=== PATIENT | female | born 1980 | race Caucasian/White ===

== ENCOUNTER 2021-01-08 00:18 | Emergency (ER) | payer OTHER, SELFPAY ==
[2021-01-08 00:34] VITALS: BP 184/96; PULSE 86; RESP 18; TEMP 36.5; O2SAT 100
[2021-01-08 01:09] LABS: Add Urine Microscopic? YES; Appearance Urine Clear (Clear); Bacteria Urine Trace /hpf; Bilirubin Urine Negative (Negative); Blood Urine 1+ (Negative); Color Urine Yellow (Yellow); Glucose Urine UA Negative (Negative); Ketones Urine Negative (Negative); Leukocyte Esterase Ur Negative LEU/UL (Negative); Mucus Urine Rare /lpf; Nitrate Urine Negative (Negative); Protein Urine Negative (Negative); RBC Urine 0-2 /hpf (0-2); Specific Grav Ur 1.012 (1.001-1.035); Squamous Epithelial Cell Urine Rare /hpf (Few); Urobilinogen Urine Negative mg/dL (<2.0); WBC Urine 0-3 /hpf
[2021-01-08 01:26] VITALS: BP 139/100; PULSE 83; RESP 18; O2SAT 100
--- NOTE | 2021-01-08 01:36 | ED.GENADULT ---
HPI - General Adult General Chief complaint: Urogenital-Female Stated complaint: kidney infection? Time Seen by Provider: 01/08/21 01:27 Source: patient History of Present Illness HPI narrative: Patient is a 40 y/o female complaining of right low back pain starting 1 week ago. She describes her pain as aching and rates it as 5/10. She states that turning and twisting make her pain worse. She took Tylenol which provides temporary relief. She has no fever, chills, vomiting or dysuria. She took OTC test for urine, which showed she has leukocytes. She is concerned about UTI. Related Data Allergies Allergy/AdvReac Type Severity Reaction Status Date / Time No Known Allergies Allergy Unverified 11/15/16 23:42 Review of Systems Constitutional: Constitutional: Denies chills, Denies fever(s), Denies headache(s) and Denies weakness Eyes: Eyes: Denies blurry vision ENT: Denies headache(s) and Denies neck pain Cardiovascular: Cardiovascular: Denies chest pain and Denies dyspnea Respiratory: Respiratory: Denies cough and Denies dyspnea Gastrointestinal: Gastrointestinal: Denies abdominal pain, Denies diarrhea, Denies nausea and Denies vomiting Genitourinary: Genitourinary: Denies hematuria and Denies dysuria Musculoskeletal: Musculoskeletal: Reports back pain and Denies neck pain Neurologic: Denies headache(s) and Denies weakness Exam Const: General: no acute distress and well developed Orientation/consciousness: oriented to person, oriented to place, oriented to time and patient oriented x3 HENMT: Head: normocephalic Ears: external ears normal General nose exam: Normal external nose present Eyes: General: appearance normal, both eyes and all related structures Conjunctivae: conjunctivae normal Neck: Neck: normal visual inspection and full ROM Chest: Chest palpation & inspection: normal inspection of the chest and no tenderness Resp: Effort & Inspection: normal respiratory effort Auscultation: clear to auscultation bilaterally Cardio: Rate: regular rate Rhythm: regular rhythm GI: GI Palp: No abdominal tenderness and Yes Soft to palpation Skin: General skin exam: normal color and turgor normal Neuro: General: oriented to person, oriented to place, oriented to time and patient oriented x3 Cognition (Neuro): normal cognition Extrem: General: normal to inspection, full ROM and no pedal edema Psych: Appearance: grossly normal Mental Status: mental status grossly normal Affect: normal affect Course Vital Signs Vital signs: Vital Signs Temperature 36.5 C 01/08/21 00:34 Pulse Rate 86 01/08/21 00:34 Respiratory Rate 18 01/08/21 00:34 Blood Pressure 184/96 H 01/08/21 00:34 Pulse Oximetry 100 01/08/21 00:34 Temperature 36.5 C 01/08/21 00:34 Pulse Rate 80 01/08/21 01:59 Respiratory Rate 18 01/08/21 01:59 Blood Pressure 138/98 H 01/08/21 01:59 Pulse Oximetry 100 01/08/21 01:59 Medical Decision Making Vital Signs Vital Signs: Vital Signs Temperature 36.5 C 01/08/21 00:34 Pulse Rate 86 01/08/21 00:34 Respiratory Rate 18 01/08/21 00:34 Blood Pressure 184/96 H 01/08/21 00:34 Pulse Oximetry 100 01/08/21 00:34 Temperature 36.5 C 01/08/21 00:34 Pulse Rate 80 01/08/21 01:59 Respiratory Rate 18 01/08/21 01:59 Blood Pressure 138/98 H 01/08/21 01:59 Pulse Oximetry 100 01/08/21 01:59 Lab Data Labs: Lab Results 01/08/21 Range/Units 00:46 Urine Color Yellow (Yellow) Urine Appearance Clear (Clear) Urine pH 6.0 (5.0-9.0) Ur Specific [place] 1.012 (1.001-1.035) Urine Protein Negative (Negative) mg/dL Urine Glucose (UA) Negative (Negative) mg/dL Urine Ketones Negative (Negative) mg/dL Ur Blood (Man) 1+ H (Negative) Urine Nitrate Negative (Negative) Urine Bilirubin Negative (Negative) Urine Urobilinogen Negative (<2.0) mg/dL Leukocyte Esterase Rfl Negative (Negative) MITRA/UL Urine RBC 0-2 (0-2)
[2021-01-08 01:59] VITALS: BP 138/98; PULSE 80; RESP 18; O2SAT 100
== END 2021-01-08 01:55 | disposition home or self-care (01) ==
PROVIDERS: Emergency Medicine; Emergency Provider Emergency Medicine
DX: M54.5 Low back pain (principal)
CPT/HCPCS: 81001; 81025; 99283

== ENCOUNTER 2023-04-07 13:37 | Outpatient (CLI) | payer OTHER, SELFPAY ==
--- NOTE | 2023-04-07 14:00 | NEURO_ITS ---
Impression: # Complains of numbness of hands. # Mild Carpal Tunnel Syndrome, left more than right. # No ulnar neuropathy. # Normal needle/EMG exam. Nerve Conduction Studies Anti Sensory Summary Table Stim Site NR Peak (ms) P-T Amp (?V) Site1 Site2 Delta-P (ms) Dist (cm) Vishal (m/s) Left Median Anti Sensory (2-3nd Digit) Wrist 3.3 65.9 Wrist 2-3nd Digit 3.3 14.0 42 Wrist 3.5 85.6 Wrist 2-3nd Digit 3.3 14.0 42 Right Median Anti Sensory (2-3nd Digit) Wrist 3.8 40.5 Wrist 2-3nd Digit 3.8 14.0 37 Wrist 4.2 30.9 Wrist 2-3nd Digit 3.8 14.0 37 Left Radial Anti Sensory (Base 1st Digit) Wrist 1.8 25.0 Wrist Base 1st Digit 1.8 0.0 Right Radial Anti Sensory (Base 1st Digit) Wrist 2.2 21.7 Wrist Base 1st Digit 2.2 0.0 Left Ulnar Anti Sensory (5th Digit) Wrist 2.3 46.3 Wrist 5th Digit 2.3 14.0 61 Right Ulnar Anti Sensory (5th Digit) Wrist 2.3 62.5 Wrist 5th Digit 2.3 14.0 61 Motor Summary Table Stim Site NR Onset (ms) O-P Amp (mV) Site1 Site2 Delta-0 (ms) Dist (cm) Vishal (m/s) Left Median Motor (Abd Poll Brev) Wrist 4.2 2.2 Elbow Wrist 3.8 24.0 63 Elbow 8.0 2.1 Right Median Motor (Abd Poll Brev) Wrist 3.8 3.4 Elbow Wrist 4.6 24.0 52 Elbow 8.4 2.7 Left Ulnar Motor (Abd Dig Minimi) Wrist 2.3 8.3 A Elbow Wrist 4.4 27.0 61 A Elbow 6.7 6.6 Right Ulnar Motor (Abd Dig Minimi) Wrist 2.3 8.3 A Elbow Wrist 3.9 26.0 67 A Elbow 6.2 7.3 F Wave Studies NR F-Lat (ms) L-R F-Lat (ms) Left Median (Mrkrs) (Abd Poll Brev) 27.91 0.18 Right Median (Mrkrs) (Abd Poll Brev) 27.74 0.18 Left Ulnar (Mrkrs) (Abd Dig Min) 23.98 0.02 Right Ulnar (Mrkrs) (Abd Dig Min) 24.00 0.02 EMG Side Muscle Nerve Root Ins Act Fibs Amp Dur Recrt Comment Right 1stDorInt Ulnar C8-T1 Nml Nml Nml Nml Nml Right Ext Indicis Radial (Post Int) C7-8 Nml Nml Nml Nml Nml Right Ext Digitorum Radial (Post Int) C7-8 Nml Nml Nml Nml Nml Right BrachioRad Radial C5-6 Nml Nml Nml Nml Nml Right PronatorTeres Median C6-7 Nml Nml Nml Nml Nml Right Abd Poll Brev Median C8-T1 Nml Nml Nml Nml Nml Left 1stDorInt Ulnar C8-T1 Nml Nml Nml Nml Nml Left Ext Indicis Radial (Post Int) C7-8 Nml Nml Nml Nml Nml Left Ext Digitorum Radial (Post Int) C7-8 Nml Nml Nml Nml Nml Left BrachioRad Radial C5-6 Nml Nml Nml Nml Nml Left PronatorTeres Median C6-7 Nml Nml Nml Nml Nml Left Abd Poll Brev Median C8-T1 Nml Nml Nml Nml Nml MTDD
== END 2023-04-07 13:38 | disposition home or self-care (01) ==
LOC: ANHNEURO 13:38
PROVIDERS: PCP Internal Medicine; Visit Provider Internal Medicine
DX: G83.89 Other specified paralytic syndromes (principal); G56.03 Carpal tunnel syndrome, bilateral upper limbs
CPT/HCPCS: 95886; 95911